=== PATIENT | male | born 1970 | race Caucasian/White ===

== ENCOUNTER 2023-04-15 15:04 | Observation (INO) | payer BC ==
--- OUTSIDE RECORDS SUMMARY | 2023-04-15 15:07 | XMS REPORT | Continuity of Care Document ---
:1970 Author Organization [facility] t Address [address] [place] [address] Care Team Providers Name Role Phone Asked, No Pcp Primary Care Physician Unavailable Danielle Attending Clinician Unavailable Danielle Admitting Clinician Unavailable Payers Payer Name Policy Type Policy Number Effective Date Expiration Date S adelfo [place] [id number] BCBS [facility] - [id number] 2017 00:00:00 OUT OF STATE Problems Condition Condition Condition Status Onset Resolution Last Treating Co mments Source Name Details Category Date Date Treatment Clinician Date S/P CABG S/P CABG Disease Active Metho di (coronary (coronary [address] artery artery 00:00: Hospita bypass bypass 00 l graft) graft) Postoperat Postoperat Disease Active 2017- M ethodi deirdre anemia deirdre anemia 02-02 due to due to 00:00: Hospita acute acute 00 l blood loss blood loss Acute Acute Disease Active [facility] respirator respirator 02-02 st y y 00:00: Hospita insufficie insufficie 00 l ncy, ncy, postoperat postoperat deirdre deirdre Postoperat Postoperat Disease Active 2017 M ethodi deirdre pain deirdre pain 02-02 00:00: Hospita 00 l Essential Essential Disease Active [facility] hypertensi hypertensi 02-02 st on on 00:00: Hospita 00 l Coronary Coronary Disease Active Metho di artery artery 01-29 st disease disease 00:00: Hospita 00 l Type 2 Type 2 Disease Active [facility] diabetes diabetes st mellitus mellitus Hospit a l Hypertensi Hypertensi Disease Active M ethodi on on Hospita l Allergies, Adverse Reactions, Alerts Allergy Allergy Status Severity Reaction(s) Onset Inactive Treating Comm ents Source Name Type Date Date Clinician MORPHINE DRUG Active Other-Cmnt 2017-07 Univ ers INGREDI 08-02 ity of 00:00: [address] [place] Morphine Propensi Active Anxiety Metho di ty to 01-29 st adverse 00:00: Hospita reaction 00 l s to drug Social History Social Habit Start Date Stop Date Quantity Comments Source [facility] History of tobacco Smokes tobacco [facility] use daily Hospital Alcohol intake 2017-02-04 2017-02-04 Current [facility] 00:00:00 00:00:00 non-drinker of Hospital alcohol (finding) Cigarettes smoked 2017-02-02 2017-02-[address] current (pack per 00:00:00 00:00:00 Hospita l day) - Reported Cigarette 2017-02-02 2017-02-02 [facility] pack-years 00:00:00 00:00:00 Hospital History of Social 2017-02-02 2017-02-[address] function 00:00:00 00:00:00 Hospital Sex Ass[birth year] At [birth year] [facility] 00:00:00 00:00:00 Hospital Smoking Status Start Date Stop Date Source Smokes tobacco daily 2017-02-02 [facility] Ordered Filled Start Stop Current Ordering Indication Dosage Frequency Signature Comments Components Source Medication Medication Date Date Medication? Clinician (SIG) Name Name clopidogrel Yes 75mg QD Take 75 mg [facility] (PLAVIX) 75 7-[address] mg tablet 13:30: daily. Hospit a 07 l fenofibrate Yes 145mg QD Take 145 M ethodi (TRICOR) 7-[address] 145 MG 13:30: mouth Hospita tablet 07 daily with l dinner. metFORMIN Yes 250mg Q.5D Take 250 Met [facility]odi (GLUCOPHAGE 7-[address] ) 500 mg 13:30: mouth 2 Hospit a tablet 06 (two) l times a day with meals. glimepiride Yes 2mg Q.5D Take 2 mg M ethodi (AMARYL) 1 - by mouth 2 st MG tablet 13:30: (two) Hospita 06 times a l day before meals. methylpheni 2017-0 Yes 10mg Take 10 mg [facility] date 02-[address] (RITALIN) 13:30: daily. Hospit a 10 MG 06 l tablet zinc 2017- Yes 50mg QD Take 50 mg [facility] sulfate 7- by mouth st (ZINCATE) 13:30: daily. Hospit a 220 (50) mg 06 l capsule magnesium 2017-0 Yes 250mg QD Take 250 Met [facility] oxide 250 7-[address] mg tablet 13:30: mouth Hospita 06 daily. l aspirin 2017-0 Yes 81mg QD Take 81 mg Meth thomas (ECOTRIN) 7- by mouth st 81 MG 13:30: daily. Hospita enteric 06 l coated tablet Procedures This patient has no known procedures. Plan of Care Planned Activity Planned Date Details Comments Source Future Scheduled 2023-03-17 [facility] Test 10:24:25 malignant neoplasm of colon (procedure) [code = 476171914] Future Scheduled 2023-03-17 [facility] Test 10:24:25 malignant neoplasm of colon (procedure) [code = [id number]] Future Scheduled 2023-03-17 [facility] Test 10:24:25 malignant neoplasm of colon (procedure) [code = [id number]] Future Scheduled 2023-03-17 COVID-[address] [facility] Test 10:24:25 (#1) [code = COVID-19 VACCINE (#1)] Future Scheduled 2023-03-17 [facility] Test 10:24:25 malignant neoplasm of colon (procedure) [code = [id number]] Future Scheduled 2023-03-17 [facility] Test 10:24:25 malignant neoplasm of colon (procedure) [code = [id number]] Future Scheduled 2023-03-17 SHINGLES VACCINES [facility] Test 10:24:25 (1 of 2) [code = SHINGLES VACCINES (1 of 2)] Future Scheduled 2023-03-17 INFLUENZA VACCINE [facility] Test 10:24:25 (#1) [code = INFLUENZA VACCINE (#1)] Encounters Start End Encounter Admission Attending Care Care Encounter Source Date/Time Date/Time Type Type Clinicians Facility Department ID 2022-02-18 2022-02-18 Outpatient [facility] [id number] [facility] 00:00:00 00:00:00 _ [id number] Family Practic e 2020-09-29 2020-09-29 Outpatient [facility] [id number] 2020-09-08 Outpatient [facility] [id number] [facility] 09:45:00 09:45:00 [facility] Results This patient has no known results.
--- NOTE | 2023-04-15 15:37 | RAD REPORT ---
EXAM DESCRIPTION: Damion Single View04/15/2023 3:25 pm CLINICAL HISTORY: Chest pain COMPARISON: 2016 FINDINGS: The lungs appear clear of acute infiltrate. The heart is probably mildly enlarged IMPRESSION: No acute abnormalities displayed
[2023-04-15 15:45] LABS: Protime INR 1.09
[2023-04-15 15:46] LABS: Absolute Lymphocytes (CBC) 2.9 K/uL (0.7-4.9); Hematocrit 44.4 % (39.6-49.0); Lymphocytes % 34.4 % (15.3-44.8); MCV 89.1 fL (80-100); MPV 8.3 fL (7.6-11.3); Platelets 248 thou/uL (152-406); RBC Red Blood Cell Count 4.98 M/uL (4.33-5.43)
[2023-04-15] MEDS ORDERED: ASPIRIN 81 MG CHEWABLE TABLET ONE (15:47)
[2023-04-15] MEDS ORDERED: NITROGLYCERIN 1 GM PKT TD ONE (15:47)
[2023-04-15] MEDS ORDERED: ONDANSETRON 4 MG/2 ML VIAL ONE (15:48)
[2023-04-15] MEDS ORDERED: MORPHINE 4 MG/ML SYR ONE (15:48)
[2023-04-15] MEDS ORDERED: ENOXAPARIN 80 MG/0.8 ML SQ ONE (15:48)
[2023-04-15] MEDS ORDERED: FAMOTIDINE 20 MG/2 ML VIAL IV ONE (15:48)
[2023-04-15] MEDS ORDERED: ACETAMINOPHEN 500 MG TAB ONE (15:48)
[2023-04-15 16:02] LABS: Bilirubin Direct 0.1 mg/dL (0-0.2); Bilirubin Indirect, Calculated 0.3 mg/dL (0.2-0.8); Bilirubin Total 0.4 mg/dL (0.2-1.0); Magnesium 1.9 mg/dL (1.6-2.4); Potassium 3.2 mEq/L (3.5-5.1); Protein, Total 8.3 g/dL (6.4-8.2); Troponin High Sensitivity 8.2 pg/mL (<58.9)
[2023-04-15 16:08] LABS: Specific Gravity < 1.005 (1.005-1.030); Urine Bacteria None Seen /HPF (<20); Urine Bilirubin NEGATIVE (Negative); Urine Blood Negative (Negative); Urine Clarity Clear (Clear); Urine Color Colorless (Yellow); Urine Glucose NEGATIVE (Negative); Urine Protein 1+ (Negative); Urine RBC <5 /HPF (None Seen); Urine Urobilinogen Normal (Normal)
--- NOTE | 2023-04-15 16:31 | ER ---
Nurse's Notes [facility] Name: Ronal Madrigal Age: 52 yrs Sex: Male : 1970 Arrival Date: 04/15/2023 Time: 15:04 Bed 3 Private MD: Diagnosis: Chest pain, unspecified;Angina pectoris, unspecified;Dyspnea;Hypo-osmolality and hyponatremia;Hypokalemia;Essential (primary) hypertension Presentation: 04/15 15:15 Chief complaint: Patient states: "About 45 minutes ago, I was leaving work and started mb9 having chest pain, palpations, SOB, and coldness in both feet and hands.". Coronavirus screen: Vaccine status: Patient reports receiving the 2nd dose of the covid vaccine. Ebola Screen: No symptoms or risks identified at this time. Initial Sepsis Screen: Does the patient meet any 2 criteria? No. Patient's initial sepsis screen is negative. Does the patient have a suspected source of infection? No. Patient's initial sepsis screen is negative. Risk Assessment: Do you want to hurt yourself or someone else? Patient reports no desire to harm self or others. Onset of symptoms was April 15, 2023. 15:15 Method Of Arrival: Wheelchair mb9 15:15 Acuity: CARLOS EDUARDO 2 mb9 Triage Assessment: 15:20 General: Appears in no apparent distress. Behavior is cooperative. Pain: Complains of mb9 pain in chest Pain does not radiate. Pain currently is 3 out of 10 on a pain scale. Quality of pain is described as aching, Pain began suddenly, Is intermittent. Neuro: Dueñas Agitation-Sedation Scale (RASS): 0 - Alert and Calm. Cardiovascular: Reports chest pain, palpitations, shortness of breath. Respiratory: Airway is patent. Derm: Skin is pink, warm \\T\\ dry. Historical: - Allergies: 15:17 Augmentin; mb9 - Home Meds: 15:17 metformin 500 mg Oral tablet [Active]; glimepiride 4 mg Oral tablet [Active]; mb9 metoprolol succinate 25 mg oral Tablet, Extended Release 24 hr 2 times per day [Active]; lisinopril-hydrochlorothiazide 20-12.5 mg oral tablet [Active]; - PMHx: 15:17 Diabetes mellitus; Hypertensive disorder; Myocardial infarction; mb9 - PSHx: 15:17 Appendectomy; Stented artery; Single Window Bypass; mb9 - Immunization history:: Adult Immunizations up to date. - Social history:: Smoking status: Patient reports the use of cigarette tobacco products, smokes one-half pack cigarettes per day. - Family history:: not pertinent. Screenin:03 [facility] ED Fall Risk Assessment (Adult) History of falling in the last 3 months, db including since admission No falls in past 3 months (0 pts) Score/Fall Risk Level 0 - 2 = Low Risk Oriented to surroundings, Maintained a safe environment. Abuse screen: Denies threats or abuse. Denies injuries from another. Nutritional screening: No deficits noted. Tuberculosis screening: No symptoms or risk factors identified. Assessment: 15:21 Reassessment: Patient appears in no apparent distress at this time. Patient and/or db family updated on plan of care and expected duration. Pain level reassessed. Patient is alert, oriented x 3, equal unlabored respirations, skin warm/dry/pink. CHEST PAIN SUDDENLY STARTED. General: Appears in no apparent distress. uncomfortable, Behavior is calm, cooperative. Pain: Complains of pain in chest. Pain: Complains of pain in chest Pain does not radiate. Neuro: Level of Consciousness is awake, alert, obeys commands, Oriented to person, place, time, situation. 16:30 Reassessment: Patient appears in no apparent distress at this time. Patient and/or db family updated on plan of care and expected duration. Pain level reassessed. Patient is alert, oriented x 3, equal unlabored respirations, skin warm/dry/pink. General: Appears in no apparent distress. comfortable, Behavior is calm, cooperative. Pain: Denies pain. Neuro: Level of Consciousness is awake, alert, obeys commands, Oriented to person, place, time, situation. Cardiovascular: Denies chest pain. Respiratory: Airway is patent Respiratory effort is even, unlabored, Respiratory pattern is regular, symmetrical. 16:56 Reassessment: STATE PATROL OFFICER WITH HOSPITALIST GROUP SPEAKING WITH PATIENT. db 16:57 Cardiovascular: Reports chest pain, palpitations. db 17:30 Reassessment: Patient appears in no apparent distress at this time. Patient and/or db family updated on plan of care and expected duration. Pain level reassessed. Patient is alert, oriented x 3, equal unlabored respirations, skin warm/dry/pink. 18:51 Reassessment: Patient appears in no apparent distress at this time. Patient and/or db family updated on plan of care and expected duration. Pain level reassessed. Patient is alert, oriented x 3, equal unlabored respirations, skin warm/dry/pink. Pain: Denies pain. Vital Signs: 15:15 BP 207 / 102; Pulse 63; Resp 18; Temp 98.4(O); Pulse Ox 100% on R/A; Weight 87.09 kg; mb9 Height 6 ft. 0 in. ; Pain 3/10; 15:30 BP 177 / 97; Pulse 55; Resp 18; Pulse Ox 100% on R/A; db 16:00 BP 177 / 95; Pulse 63; Resp 16 S; Pulse Ox 100% ; db 16:30 BP 157 / 85; Pulse 57; Resp 18; Pulse Ox 100% on R/A; db 17:30 BP 160 / 86; Pulse 59; Resp 16; Pulse Ox 99% on R/A; db 18:30 BP 162 / 70; Pulse 64; Resp 18; Pulse Ox 99% on R/A; db 19:27 BP 159 / 78; Pulse 61; Resp 16; Temp 98.3; Pulse Ox 100% on R/A; rv 15:15 Body Mass Index 26.04 (87.09 kg, 182.88 cm) mb9 15:15 Pain Scale: Adult mb9 Chad Coma Score: 19:27 Eye Response: spontaneous(4). Motor Response: obeys commands(6). Verbal Response: rv oriented(5). Total: 15. ED Course: 15:06 Patient arrived in ED. im 15:06 Ac Cárdenas MD is Attending Physician. natasha 15:15 Arm band placed on. mb9 15:16 EKG done, by ED staff, reviewed by Ac Cárdenas MD. db 15:17 Triage completed. mb9 15:20 Renita Coughlin, RN is Primary Nurse. db 15:24 XRAY Chest (1 view) In Process Unspecified. EDMS 15:29 Inserted saline lock: 20 gauge in right antecubital area, using aseptic technique. db Blood collected. 16:03 Patient has correct armband on for positive identification. Bed in low position. Call db light in reach. Side rails up X 1. Client placed on continuous cardiac and pulse oximetry monitoring. NIBP monitoring applied. 16:29 Ricki Castro is Hospitalizing Provider. [facility] 18:49 Provided Education on: ADMISSION. db 18:49 No provider procedures requiring assistance completed. Patient admitted, IV remains in db place. Patient maintains SpO2 saturation greater than 95% on room air. 18:58 Primary Nurse role handed off by Renita Coughlin, RN bp 18:58 Jef Hampton, RN is Primary Nurse. bp Administered Medications: 15:19 CANCELLED (Duplicate Order): aspirinchewable tablet 324 mg PO once; 81 mg tablets x 4 natasha 15:48 Drug: Aspirin PO Chewable Tablet 81 mg PO once Route: PO; db 16:59 Follow up: Response: No adverse reaction db 15:48 Drug: Enoxaparin Sub-Q 1 mg/kg Sub-Q once Route: Sub-Q; Site: right lower abdomen; db 16:59 Follow up: Response: No adverse reaction db 15:50 Drug: Acetaminophen PO 1000 mg PO once Route: PO; db 17:00 Follow up: Response: No adverse reaction db 15:51 Drug: Nitroglycerin Transdermal Ointment 2 % 1 inches Transdermal once Route: db Transdermal; Site: anterior chest wall; 15:52 Drug: Famotidine IVP 20 mg IVP once; dilute with 10 mL 0.9% NaCl; give over 2 minutes db Route: IVP; Site: right antecubital; 16:59 Follow up: Response: No adverse reaction db 16:01 Not Given (Patient Refused; NOTIFIED PROVIDER): morphineor iv 4 mg IVP once over 4 mins db 16:01 Not Given (Patient Refused; NOTIFIED PROVIDERr): ondansetron 4 mg IVP once; over 2 db minutes 16:35 Not Given (Hemodynamic Parameters; HR 56): metoprolol2.5 mg IVP once; Hold for SBP <100 db or HR <60. 16:35 Not Given (Hemodynamic Parameters; HR 56): metoprolol2.5 mg IVP once; Hold for SBP <100 db or HR <60. 17:03 Drug: Potassium PO Effervescent Tablet 50 mEq PO once; dissolve in 4 ounces of water or db juice Route: PO; 18:52 Follow up: Response: No adverse reaction db Medication: 18:49 VIS not applicable for this client. db Outcome: 16:30 Decision to Hospitalize by Provider. natasha 18:49 Admitted to Tele db 18:49 Condition: stable 18:49 Instructed on the need for admit, 19:28 Admitted to Med/surg accompanied by tech, via stretcher, room 206, with chart, Report rv called to MATT HOWARD 19:28 Patient left the ED. rv Signatures: Dispatcher FrankHost Ac Bain MD MD cha Peltier, Brian, RN RN Oskar Dixon RN RN rv Benton, Danielle, RN RN db Breneman, Mary Beth RN RN mb9 Vanessa Looney Corrections: (The following items were deleted from the chart) 16:57 15:21 Reassessment: Patient appears in no apparent distress at this time. Patient db and/or family updated on plan of care and expected duration. Pain level reassessed. Patient is alert, oriented x 3, equal unlabored respirations, skin warm/dry/pink. CHEST PAIN SUDDENLY STARTED db
--- NOTE | 2023-04-15 16:31 | EDPHYS ---
Physician Documentation [facility] Name: Ronal Madrigal Age: 52 yrs Sex: Male : 1970 Arrival Date: 04/15/2023 Time: 15:04 Bed 3 Private MD: ED Physician Ac Cárdenas HPI: 04/15 16:24 This 52 yrs old Male presents to ER via Wheelchair with complaints of Chest natasha Pain. 16:24 The patient or guardian reports chest pain that is located primarily in the substernal natasha area. Onset: just prior to arrival. The pain does not radiate. Associated signs and symptoms: Pertinent positives: lightheadedness, shortness of breath. The chest pain is described as a heaviness, a pressure. Duration: The patient or guardian reports a single episode, that is still ongoing, but improving. Modifying factors: The symptoms are alleviated by nothing. the symptoms are aggravated by nothing. Severity of pain: At its worst the pain was moderate in the emergency department the pain has improved moderately. The patient has experienced similar episodes in the past, multiple times. Historical: - Allergies: 15:17 Augmentin; mb9 - Home Meds: 15:17 metformin 500 mg Oral tablet [Active]; glimepiride 4 mg Oral tablet [Active]; mb9 metoprolol succinate 25 mg oral Tablet, Extended Release 24 hr 2 times per day [Active]; lisinopril-hydrochlorothiazide 20-12.5 mg oral tablet [Active]; - PMHx: 15:17 Diabetes mellitus; Hypertensive disorder; Myocardial infarction; mb9 - PSHx: 15:17 Appendectomy; Stented artery; Single Window Bypass; mb9 - Immunization history:: Adult Immunizations up to date. - Social history:: Smoking status: Patient reports the use of cigarette tobacco products, smokes one-half pack cigarettes per day. - Family history:: not pertinent. ROS: 16:24 Constitutional: Negative for fever, chills, and weight loss, Eyes: Negative for injury, natasha pain, redness, and discharge, ENT: Negative for injury, pain, and discharge, Neck: Negative for injury, pain, and swelling, Respiratory: Negative for shortness of breath, cough, wheezing, and pleuritic chest pain, Abdomen/GI: Negative for abdominal pain, nausea, vomiting, diarrhea, and constipation, Back: Negative for injury and pain, : Negative for injury, bleeding, discharge, and swelling, MS/Extremity: Negative for injury and deformity, Skin: Negative for injury, rash, and discoloration, Neuro: Negative for headache, weakness, numbness, tingling, and seizure, Psych: Negative for depression, anxiety, suicide ideation, homicidal ideation, and hallucinations, Allergy/Immunology: Negative for hives, rash, and allergies, Endocrine: Negative for neck swelling, polydipsia, polyuria, polyphagia, and marked weight changes, Hematologic/Lymphatic: Negative for swollen nodes, abnormal bleeding, and unusual bruising, 16:24 Cardiovascular: Positive for chest pain, of the chest, Exam: 16:24 Constitutional: This is a well developed, well nourished patient who is awake, alert, natasha and in no acute distress. Head/Face: Normocephalic, atraumatic. Eyes: Pupils equal round and reactive to light, extra-ocular motions intact. Lids and lashes normal. Conjunctiva and sclera are non-icteric and not injected. Cornea within normal limits. Periorbital areas with no swelling, redness, or edema. ENT: Nares patent. No nasal discharge, no septal abnormalities noted. Tympanic membranes are normal and external auditory canals are clear. Oropharynx with no redness, swelling, or masses, exudates, or evidence of obstruction, uvula midline. Mucous membranes moist. Neck: Trachea midline, no thyromegaly or masses palpated, and no cervical lymphadenopathy. Supple, full range of motion without nuchal rigidity, or vertebral point tenderness. No Meningismus. Chest/axilla: Normal chest wall appearance and motion. Nontender with no deformity. No lesions are appreciated. Cardiovascular: Regular rate and rhythm with a normal S1 and S2. No gallops, murmurs, or rubs. Normal PMI, no JVD. No pulse deficits. Respiratory: Lungs have equal breath sounds bilaterally, clear to auscultation and percussion. No rales, rhonchi or wheezes noted. No increased work of breathing, no retractions or nasal flaring. Abdomen/GI: Soft, non-tender, with normal bowel sounds. No distension or tympany. No guarding or rebound. No evidence of tenderness throughout. Back: No spinal tenderness. No costovertebral tenderness. Full range of motion. Male : Normal genitalia with no discharge or lesions. Skin: Warm, dry with normal turgor. Normal color with no rashes, no lesions, and no evidence of cellulitis. MS/ Extremity: Pulses equal, no cyanosis. Neurovascular intact. Full, normal range of motion. Neuro: Awake and alert, GCS 15, oriented to person, place, time, and situation. Cranial nerves II-XII grossly intact. Motor strength 5/5 in all extremities. Sensory grossly intact. Cerebellar exam normal. Normal gait. Psych: Awake, alert, with orientation to person, place and time. Behavior, mood, and affect are within normal limits. 16:24 ECG was reviewed by the Attending Physician. Vital Signs: 15:15 BP 207 / 102; Pulse 63; Resp 18; Temp 98.4(O); Pulse Ox 100% on R/A; Weight 87.09 kg; mb9 Height 6 ft. 0 in. ; Pain 3/10; 15:30 BP 177 / 97; Pulse 55; Resp 18; Pulse Ox 100% on R/A; db 16:00 BP 177 / 95; Pulse 63; Resp 16 S; Pulse Ox 100% ; db 16:30 BP 157 / 85; Pulse 57; Resp 18; Pulse Ox 100% on R/A; db 17:30 BP 160 / 86; Pulse 59; Resp 16; Pulse Ox 99% on R/A; db 18:30 BP 162 / 70; Pulse 64; Resp 18; Pulse Ox 99% on R/A; db 19:27 BP 159 / 78; Pulse 61; Resp 16; Temp 98.3; Pulse Ox 100% on R/A; rv 15:15 Body Mass Index 26.04 (87.09 kg, 182.88 cm) mb9 15:15 Pain Scale: Adult mb9 Chad Coma Score: 19:27 Eye Response: spontaneous(4). Motor Response: obeys commands(6). Verbal Response: rv oriented(5). Total: 15. MDM: 15:06 Patient medically screened. natasha 16:26 Differential diagnosis: abnormal EKG, acute myocardial infarction, anxiety, coronary natasha artery disease chest wall pain, Cholelithiasis costochondritis, esophagitis, gastritis, hiatal hernia, pancreatitis, peptic ulcer disease, pericarditis, pneumonia, pulmonary embolus, stable angina, thoracic aortic disection, unstable angina. HEART Score: History: Moderately Suspicious (1), ECG: Non specific repolarization disturbance / LBTB / PM (1), Age: > 45 and < 65 years (1), Risk Factors: > or = 3 Risk factors for atherosclerotic disease (2), [Hypercholesterolemia] [Hypertension] [+ Family HX] Troponin: < or = 1 x Normal Limit (0). The patient was given aspirin in the Emergency Department. FLETCHER Risk Score: 1 - Three or more CAD risk factors, 1- Known CAD, 1 - ASA use in past 7 days, 1 - Recent [<24hrs] Severe Angina, TOTAL SCORE = 4. Data reviewed: vital signs, nurses notes, lab test result(s), EKG, radiologic studies, plain films. Consideration of Admission/Observation Patient was admitted/placed on observation. Escalation of care including admission/observation considered. I considered the following discharge prescriptions or medication management in the emergency department Medications were administered in the Emergency Department. See MAR. Independent interpretation of the following test(s) in the Emergency Department EKG: See my EKG interpretation above. Test considered but Not performed: CT: ct chest. Care significantly affected by the following chronic conditions: Diabetes, Hypertension, mi. 04/15 15:12 Order name: Basic Metabolic Panel; Complete Time: 16:21 natasha 04/15 15:12 Order name: CBC with Diff; Complete Time: 16:21 natasha 04/15 15:12 Order name: LFT's; Complete Time: 16:21 natasha 04/15 15:12 Order name: Magnesium; Complete Time: 16:21 natasha 04/15 15:12 Order name: NT PRO-BNP; Complete Time: 16:21 natasha 04/15 15:12 Order name: PT-INR; Complete Time: 16:21 natasha 04/15 15:12 Order name: Troponin HS; Complete Time: 16:21 natasha 04/15 15:12 Order name: Lipase; Complete Time: 16:21 natasha 04/15 15:12 Order name: Urinalysis w/ reflexes; Complete Time: 16:21 natasha 04/15 15:12 Order name: XRAY Chest (1 view); Complete Time: 16:21 natasha 04/15 15:12 Order name: EKG; Complete Time: 15:12 natasha 04/15 17:24 Order name: CONS Physician Consult EDAR 04/15 15:12 Order name: Cardiac monitoring; Complete Time: 16:59 [facility] 04/15 15:12 Order name: EKG - Nurse/Tech; Complete Time: 16:59 [facility] 04/15 15:12 Order name: IV Saline Lock; Complete Time: 16:59 [facility] 04/15 15:12 Order name: Labs collected and sent; Complete Time: 16:59 [facility] 04/15 15:12 Order name: O2 Per Protocol; Complete Time: 16:59 [facility] 04/15 15:12 Order name: O2 Sat Monitoring; Complete Time: 16:59 [facility] EC:24 Rate is 61 beats/min. Rhythm is regular. QRS Ursa is Normal. NV interval is normal. QRS natasha interval is normal. QT interval is normal. No Q waves. T waves are Normal. No ST changes noted. Clinical impression: NSR w/ Non-specific ST/T Changes and No evidence of ischemia. Interpreted by me. Reviewed by me. Administered Medications: 15:19 CANCELLED (Duplicate Order): aspirinchewable tablet 324 mg PO once; 81 mg tablets x 4 natasha 15:48 Drug: Aspirin PO Chewable Tablet 81 mg PO once Route: PO; db 16:59 Follow up: Response: No adverse reaction db 15:48 Drug: Enoxaparin Sub-Q 1 mg/kg Sub-Q once Route: Sub-Q; Site: right lower abdomen; db 16:59 Follow up: Response: No adverse reaction db 15:50 Drug: Acetaminophen PO 1000 mg PO once Route: PO; db 17:00 Follow up: Response: No adverse reaction db 15:51 Drug: Nitroglycerin Transdermal Ointment 2 % 1 inches Transdermal once Route: db Transdermal; Site: anterior chest wall; 15:52 Drug: Famotidine IVP 20 mg IVP once; dilute with 10 mL 0.9% NaCl; give over 2 minutes db Route: IVP; Site: right antecubital; 16:59 Follow up: Response: No adverse reaction db 16:01 Not Given (Patient Refused; NOTIFIED PROVIDER): morphineor iv 4 mg IVP once over 4 mins db 16:01 Not Given (Patient Refused; NOTIFIED PROVIDERr): ondansetron 4 mg IVP once; over 2 db minutes 16:35 Not Given (Hemodynamic Parameters; HR 56): metoprolol2.5 mg IVP once; Hold for SBP <100 db or HR <60. 16:35 Not Given (Hemodynamic Parameters; HR 56): metoprolol2.5 mg IVP once; Hold for SBP <100 db or HR <60. 17:03 Drug: Potassium PO Effervescent Tablet 50 mEq PO once; dissolve in 4 ounces of water or db juice Route: PO; 18:52 Follow up: Response: No adverse reaction db Disposition Summary: 04/15/23 16:30 Hospitalization Ordered Notes: Hospitalization Status: Observation natasha Provider: Ricki Castro cha Location: Telemetry/MedSurg (observation) natasha Condition: Fair natasha Problem: new natasha Symptoms: have improved natasha Bed/Room Type: Standard [facility] Room Assignment: 206(04/15/23 18:39) bd Diagnosis - Chest pain, unspecified natasha - Angina pectoris, unspecified natasha - Dyspnea natasha - Hypo-osmolality and hyponatremia natasha - Hypokalemia natasha - Essential (primary) hypertension natasha Forms: - Medication Reconciliation Form natasha - SBAR form natasha - Leadership Thank You Letter natasha Signatures: Dispatcher [employer] EDKristin Elliott Corey, MD MD cha Benton, Danielle, RN RN Esther Zelaya RN RN mb9 Corrections: (The following items were deleted from the chart) 15:19 15:12 Aspirin PO Chewable Tablet 324 mg PO once; 81 mg tablets x 4 ordered. [facility] 18:39 16:30 natasha bd
[2023-04-15] MEDS ORDERED: POTASSIUM 25 MEQ EFFERV TAB ONE (17:14)
--- NOTE | 2023-04-15 18:07 | P.HP ---
Certification for Inpatient Patient admitted to: Observation With expected LOS: <2 Midnights Practitioner: I am a practitioner with admitting privileges, knowledge of patient current condition, hospital course, and medical plan of care. Services: Services provided to patient in accordance with Admission requirements found in Title 42 Section 412.3 of the Code of Federal Regulations Patient History Date of Service: 04/15/23 Reason for admission: Chest pain History of Present Illness: 52-year-old gentleman with a history of coronary artery disease status post CABG, hypertension presented to the emergency department due to chest pain of onset this morning. Patient reported sudden onset left-sided chest pain, of moderate intensity, associated with some lightheadedness and cold peripheries, and shortness of breath, nonradiating chest pain, no associated diaphoresis or nausea or vomiting. Patient states he had a stress test done about 3 weeks which was abnormal and he has been scheduled for cardiac catheterization somewhere next week. Initial troponin in the ED is negative. EKG demonstrated sinus rhythm and nonspecific ST-T changes. Patient was chest pain-free during my examination in the ED. Chest x-ray shows no acute disease. Given patient's significant CAD risk factors, patient was hospitalized for ACS rule out and for further evaluation of his CAD. Allergies morphine Allergy (Intermediate, Verified 01/28/17 10:04) agitation, skin crawls Home Medications: Aspirin Enteric Coated [ASPIRIN 81 MG EC*] 81 mg PO DAILY 08/20/13 Clopidogrel Bisulfate [Plavix*] 75 mg PO DAILY 08/20/13 Fenofibrate [Tricor*] 145 mg PO DAILY 08/20/13 Glimepiride [Amaryl*] 2 mg PO BID 08/20/13 Magnesium Oxide [Magnesium] 250 mg PO DAILY 08/20/13 Metformin HCl [Glucophage*] 250 mg PO BID 08/20/13 Methylphenidate HCl [Ritalin] 10 mg PO DAILY 08/20/13 Metoprolol Succinate [Toprol Xl*] 25 mg PO BID 08/20/13 Ubidecarenone/[place]-3/Vit E [Coq-10 & Fish Oil Softgel] 100 mg PO DAILY 08/20/13 Zinc 50 mg PO DAILY 08/20/13 - Past Medical/Surgical History Diabetic: Yes -: HTN -: CAD, Previous GA and heart stent -: Hyperlipidemia -: Adult ADD -: Tobacco dependence -: Appendectomy -: Heart stent, 2011 -: Tonsillectomy Psychosocial/ Personal History: Lives at home. - Family History Father -: Heart disease - Social History Smoking Status: Current every day smoker Alcohol use: Yes CD- Drugs: No Caffeine use: Yes Review of Systems Other: Patient denied any cough or fever or abdominal pain. Except as documented, all other systems reviewed and negative. Physical Examination - Physical Exam General: Alert, In no apparent distress, Oriented x3 HEENT: Atraumatic, Normocephalic, Mucous membr. moist/pink, Sclerae nonicteric Neck: Supple, JVD not distended Respiratory: Clear to auscultation bilaterally, Normal air movement Cardiovascular: No edema, Regular rate/rhythm, Normal S1 S2, No murmurs Gastrointestinal: Normal bowel sounds, Soft and benign, Non-distended, No tenderness Musculoskeletal: No swelling Integumentary: No rashes, No cyanosis Neurological: Normal speech, Normal strength at 5/5 x4 extr, Cranial nerves 3-12 intact Lymphatics: No axilla or inguinal lymphadenopathy - Studies Laboratory Data (last 24 hrs) 04/15/23 04/15/23 04/15/23 15:29 15:29 15:29 WBC 8.50 Hgb 15.9 Hct 44.4 Plt Count 248 PT 12.0 INR 1.09 Sodium 130 L Potassium 3.2 L BUN 9 Creatinine 0.90 Glucose 148 H Magnesium 1.9 Total Bilirubin 0.4 AST 23 ALT 54 Alkaline Phosphatase 99 Lipase 69 Assessment and Plan - Problems (Diagnosis) (1) Coronary artery disease Current Visit: Yes Status: Acute (2) Tobacco use Current Visit: Yes Status: Acute (3) Essential hypertension Current Visit: Yes Status: Acute (4) Chest pain Current Visit: No Status: Acute (5) Diabetes mellitus Current Visit: No Status: Acute (6) Hyperlipidemia Current Visit: No Status: Acute - Plan Place patient under observation Trend troponin Aspirin, statin. Check lipid profile. NTG as needed Cardiology consult. Patient noted to be bradycardic in the ED Beta-blockers as tolerated. Analgesics as needed. - Advance Directives Does patient have a Living Will: No Does patient have a Durable POA for Healthcare: No
[2023-04-15] MEDS ORDERED: NITROGLYCERIN 0.4 MG/TAB SL PRN (19:24)
[2023-04-15 19:40] VITALS: BP 159/78; TEMP 98.3; O2SAT 100
[2023-04-15 20:53] LABS: Troponin High Sensitivity 10.4 pg/mL (<58.9)
[2023-04-16] MEDS ORDERED: ASPIRIN EC 81 MG TAB PO SCH (09:00)
[2023-04-16] MEDS ORDERED: ENOXAPARIN 40 MG/0.4 ML SQ SCH (09:00)
--- NOTE | 2023-04-16 17:00 | EKG ---
Test Date: 2023-04-15 Test Time: 15:16:07 Machine I Trimmer: MADIHA MEASUREMENT RESULTS: Intervals: Rate: 61 MN: 188 QRSD: 94 QT: 426 QTc: 428 [place]: P: 60 MN: 188 QRS: 52 T: -25 INTERPRETIVE STATEMENTS: Normal sinus rhythm Cannot rule out Inferior infarct, age undetermined Abnormal ECG Compared to ECG 08/21/2013 15:04:35 Myocardial infarct finding now present Sinus bradycardia no longer present Electronically Signed On 04-16-23 16:56:40 CDT by Leonardo Archibald
--- NOTE | 2023-04-16 18:09 | P.DS ---
Admission Date: 04/15/23 Discharge Date: 04/15/23 Disposition: AMA-LEFT AGAINST MEDICAL ADVIC Reason for Admission: Chest pain - Problems (1) Coronary artery disease Status: Acute (2) Tobacco use Status: Acute (3) Essential hypertension Status: Acute (4) Chest pain Status: Acute (5) Diabetes mellitus Status: Acute (6) Hyperlipidemia Status: Acute Brief History of Present Illness: 52-year-old gentleman with a history of coronary artery disease status post CABG, hypertension presented to the emergency department due to chest pain of onset this morning. Patient reported sudden onset left-sided chest pain, of moderate intensity, associated with some lightheadedness and cold peripheries, and shortness of breath, nonradiating chest pain, no associated diaphoresis or nausea or vomiting. Patient states he had a stress test done about 3 weeks which was abnormal and he has been scheduled for cardiac catheterization somewhere next week. Initial troponin in the ED is negative. EKG demonstrated sinus rhythm and nonspecific ST-T changes. Patient was chest pain-free during my examination in the ED. Chest x-ray shows no acute disease. Given patient's significant CAD risk factors, patient was hospitalized for ACS rule out and for further evaluation of his CAD. Hospital Course: Patient was hospitalized for ACS rule out and also to be evaluated by cardiology Dr. Archibald for possible cardiac cath. I did not see patient on my rounding list this morning. I reviewed the chart and noted patient signed out AGAINST MEDICAL ADVICE. I was not available to convince patient to stay and to discuss his risk of signing out AGAINST MEDICAL ADVICE. Vital Signs/Physical Exam: Temp Pulse Resp BP Pulse Ox 98.3 F 61 16 159/78 H 04/15/23 19:27 04/15/23 19:27 04/15/23 19:27 04/15/23 19:27 Laboratory Data at Discharge: WBC 8.50 thou/uL (4.3-10.9) 04/15/23 15:29 Hgb 15.9 g/dL (13.6-17.9) 04/15/23 15:29 Hct 44.4 % (39.6-49.0) 04/15/23 15:29 Plt Count 248 thou/uL (152-406) 04/15/23 15:29 PT 12.0 SECONDS (9.5-12.5) 04/15/23 15:29 INR 1.09 04/15/23 15:29 Sodium 130 mEq/L (136-145) L 04/15/23 15:29 Potassium 3.2 mEq/L (3.5-5.1) L 04/15/23 15:29 BUN 9 mg/dL (7-18) 04/15/23 15:29 Creatinine 0.90 mg/dL (0.70-1.30) 04/15/23 15:29 Glucose 148 mg/dL (74-106) H 04/15/23 15:29 Magnesium 1.9 mg/dL (1.6-2.4) 04/15/23 15:29 Total Bilirubin 0.4 mg/dL (0.2-1.0) 04/15/23 15:29 AST 23 U/L (15-37) 04/15/23 15:29 ALT 54 U/L (16-61) 04/15/23 15:29 Alkaline Phosphatase 99 U/L (45-117) 04/15/23 15:29 Triglycerides 356 mg/dL (<150) H 04/15/23 20:06 Cholesterol 147 mg/dL (<200) 04/15/23 20:06 HDL Cholesterol 34 mg/dL (40-60) L 04/15/23 20:06 Cholesterol/HDL Ratio 4.32 04/15/23 20:06 Lipase 69 U/L (13-75) 04/15/23 15:29 Home Medications: Aspirin Enteric Coated [ASPIRIN 81 MG EC*] 81 mg PO DAILY 08/20/13 Clopidogrel Bisulfate [Plavix*] 75 mg PO DAILY 08/20/13 Glimepiride [Amaryl*] 2 mg PO BID 08/20/13 Magnesium Oxide [Magnesium] 250 mg PO DAILY 08/20/13 Metformin HCl [Glucophage*] 250 mg PO BID 08/20/13 Metoprolol Succinate [Toprol Xl*] 25 mg PO BID 08/20/13 Zinc 50 mg PO DAILY 08/20/13 Lisinopril/Hydrochlorothiazide [Lisinopril-Hctz 20-25 mg Tab] 04/16/23 Followup: Jessi REYES,Finesse Hernández DO [Primary Care Provider] -
== END 2023-04-15 20:07 | disposition left against medical advice (07) ==
LOC: ER 15:04 → ERHOLD 17:20 → 2ND 18:50
PROVIDERS: ADMIT Internal Medicine; ATTEND Internal Medicine
DX: I25.10 Atherosclerotic heart disease of native coronary artery without angina pectoris (principal); I10 Essential (primary) hypertension; F17.210 Nicotine dependence, cigarettes, uncomplicated; E11.9 Type 2 diabetes mellitus without complications; E78.5 Hyperlipidemia, unspecified; Z88.5 Allergy status to narcotic agent; Z72.0 Tobacco use; Z95.1 Presence of aortocoronary bypass graft
CPT/HCPCS: 36415; 71045; 80048; 80061; 80076; 81001; 83690; 83735; 83880; 84484; 85025; 85610; 93005; 96372; 96374; 99285; G0378; J2405

== ENCOUNTER 2023-04-21 11:28 | Day surgery (SDC) | payer BC ==
--- NOTE | 2023-04-17 12:24 | EKG ---
Test Date: 2023-04-16 Test Time: 12:51:18 Home Health Care Provider: DEBBIE MEASUREMENT RESULTS: Intervals: Rate: 58 LA: 176 QRSD: 98 QT: 408 QTc: 400 [place]: P: 48 LA: 176 QRS: 24 T: 96 INTERPRETIVE STATEMENTS: Sinus bradycardia Cannot rule out Anterior infarct, age undetermined ST & T wave abnormality, consider lateral ischemia Abnormal ECG Compared to ECG 04/15/2023 15:16:07 ST (T wave) deviation now present Possible ischemia now present Sinus rhythm no longer present Myocardial infarct finding still present Electronically Signed On 04-17-23 12:20:54 CDT by Leonardo Archibald
[2023-04-21 14:38] VITALS: O2SAT 98
[2023-04-21 15:41] VITALS: BP 168/92
== END 2023-04-21 15:45 | disposition home or self-care (01) ==
LOC: PRE 11:28 → CCL 15:45
PROVIDERS: ATTEND Internal Medicine
DX: I25.110 Atherosclerotic heart disease of native coronary artery with unstable angina pectoris (principal); I25.82 Chronic total occlusion of coronary artery; I73.9 Peripheral vascular disease, unspecified; I10 Essential (primary) hypertension; E78.5 Hyperlipidemia, unspecified; E11.9 Type 2 diabetes mellitus without complications; Z95.1 Presence of aortocoronary bypass graft; Z95.5 Presence of coronary angioplasty implant and graft; Z87.891 Personal history of nicotine dependence; Z79.82 Long term (current) use of aspirin; Z79.84 Long term (current) use of oral hypoglycemic drugs; Z79.899 Other long term (current) drug therapy; Z82.49 Family history of ischemic heart disease and other diseases of the circulatory system
CPT/HCPCS: 93005; 85347; 92928; 93458; 76937; C1893; Q9966; C1725

== ENCOUNTER 2023-05-18 10:55 | Day surgery (SDC) | payer BC ==
[2023-05-14 14:31] LABS: Absolute Lymphocytes (CBC) 3.2 K/uL (0.7-4.9); Hematocrit 42.5 % (39.6-49.0); Lymphocytes % 34.5 % (15.3-44.8); MCV 90.3 fL (80-100); MPV 8.2 fL (7.6-11.3); Platelets 229 thou/uL (152-406); RBC Red Blood Cell Count 4.71 M/uL (4.33-5.43)
[2023-05-14 14:35] LABS: Protime INR 1.09
[2023-05-14 14:55] LABS: Potassium 3.6 mEq/L (3.5-5.1)
[2023-05-18] MEDS ORDERED: NA CHLORIDE 0.9% 500 ML ONE (11:50)
[2023-05-18 11:54] VITALS: TEMP 98; O2SAT 99
[2023-05-18] MEDS ORDERED: HEPA 1000U/500MLS 2,000 UNIT/1,000 ML BAG IV ONE (12:08)
[2023-05-18] MEDS ORDERED: FENTANYL CITR 100 MCG/2 ML ONE (12:08)
[2023-05-18] MEDS ORDERED: VERAPAMIL HCL 10 MG/4 ML VIAL IV ONE (12:09)
[2023-05-18] MEDS ORDERED: ASPIRIN 325 MG TAB ONE (12:09)
[2023-05-18] MEDS ORDERED: MIDAZOLAM HCL 2 MG/2 ML INJ ONE (12:09)
[2023-05-18] MEDS ORDERED: HEPARIN 5000 UNIT/ML 1 ML VIAL ONE (12:09)
[2023-05-18] MEDS ORDERED: CLOPIDOGREL 75 MG TABLET ONE (12:09)
[2023-05-18] MEDS ORDERED: LIDOCAINE 1% 20 ML MDV ONE (12:10)
[2023-05-18] MEDS ORDERED: HEPARIN 10,000 UNIT/10 ML VIAL IV ONE (12:10)
[2023-05-18] MEDS ORDERED: TICAGRELOR 90 MG TABLET PO ONE (12:10)
[2023-05-18] MEDS ORDERED: ATROPINE SULF 1 MG/10 ML SYR IV ONE (12:10)
[2023-05-18 16:47] VITALS: BP 120/61
--- NOTE | 2023-05-23 14:51 | EKG ---
Test Date: 2023-05-14 Test Time: 14:17:25 Escrow Agent: LOW MEASUREMENT RESULTS: Intervals: Rate: 51 CO: 196 QRSD: 100 QT: 426 QTc: 392 [place]: P: 43 CO: 196 QRS: -4 T: 105 INTERPRETIVE STATEMENTS: Sinus bradycardia Left ventricular hypertrophy with repolarization abnormality Inferior infarct, age undetermined Abnormal ECG Compared to ECG 04/16/2023 12:51:18 Left ventricular hypertrophy now present Early repolarization now present ST (T wave) deviation no longer present Possible ischemia no longer present Myocardial infarct finding still present Electronically Signed On 05-23-23 14:25:07 CROSSTIE INSPECTOR by Leonardo Archibald
== END 2023-05-18 14:20 | disposition home or self-care (01) ==
LOC: CCL 10:55
PROVIDERS: ATTEND Internal Medicine
DX: I70.223 Atherosclerosis of native arteries of extremities with rest pain, bilateral legs (principal); I70.92 Chronic total occlusion of artery of the extremities; I25.10 Atherosclerotic heart disease of native coronary artery without angina pectoris; I10 Essential (primary) hypertension; E11.9 Type 2 diabetes mellitus without complications; E78.2 Mixed hyperlipidemia; I25.2 Old myocardial infarction; Z95.1 Presence of aortocoronary bypass graft; Z95.5 Presence of coronary angioplasty implant and graft; Z87.891 Personal history of nicotine dependence; Z79.85 Long-term (current) use of injectable non-insulin antidiabetic drugs; Z79.84 Long term (current) use of oral hypoglycemic drugs; Z79.899 Other long term (current) drug therapy; Z88.8 Allergy status to other drugs, medicaments and biological substances; Z82.49 Family history of ischemic heart disease and other diseases of the circulatory system
CPT/HCPCS: 36200; 36415; 75630; 76937; 80048; 85025; 85610; 85730; 93005; C1893; J0461; J1644; J2001; J2250; J3010; J7040